=== PATIENT | female | born 1970 | race African-American/Black ===

== ENCOUNTER 2019-09-27 05:15 | Emergency (ER) | payer OTHER ==
[~2019-09-27] VITALS: Ht 172.7 cm; Wt 86.2 kg
[2019-09-27 05:20] VITALS: BP 127/92
[2019-09-27 06:12] LABS: ABSOLUTE NEUTROPHILS 6.8 thou/uL (1.4-8.2); BASOPHILS 0.4 % (0.0-2.0); EOSINOPHILS 0.8 % (0.0-3.0); HEMOGLOBIN 10.4 gm/dL (12.0-15.0); LYMPHOCYTES 13.6 % (24.0-44.0); MCH 24.8 pg (26.0-34.0); MCHC 31.6 g/dL (28.0-37.0); MCV 78.3 fL (80.0-100.0); MONOCYTES 8.8 % (1.0-8.0); PLATELET COUNT 357 thou/uL (150-400); POLYS 76.4 % (36.0-66.0); RBC 4.22 mil/uL (4.20-5.00); RDW 20.3 % (10.5-14.5); WBC 8.8 thou/uL (4.0-11.0)
[2019-09-27 06:21] LABS: CALCIUM 9.6 mg/dL (8.5-10.1); CREATININE 0.8 mg/dL (0.6-1.0); POTASSIUM 3.2 mmol/L (3.5-5.1)
[2019-09-27] MEDS ORDERED: MOBIC15 MG PO (06:31)
[2019-09-27 10:00] LABS: ANISOCYTOSIS 2+
== END 2019-09-27 07:00 | disposition home or self-care (01) ==
LOC: ER 05:15
PROVIDERS: Emergency Medicine
DX: B34.9 Viral infection, unspecified (principal); Z88.0 Allergy status to penicillin; Z87.891 Personal history of nicotine dependence